=== PATIENT | female | born 1955 | race Caucasian/White ===

== ENCOUNTER 2017-03-03 11:40 | Emergency (ER) | payer MEDICARE, OTHER ==
[2017-03-03 12:34] VITALS: BP 114/86
--- NOTE | 2017-03-03 12:55 | UC ---
Lower Extremity/Ankle HPI - HPI Summary HPI Summary: BILATERAL LEG/ FEET SWELLING HAS BEEN TRAVELING A LOT AND HAS BEEN ON HER FEET FOR LONG HRS. NO CALF PAIN , NO CHEST PAIN , COUGH OR SOB - History of Current Complaint Chief Complaint: UCLowerExtremity Stated Complaint: LEFT FOOT SWELLING Time Seen by Provider: 03/03/17 12:26 Hx Obtained From: Patient Hx Last Menstrual Period: n/a Onset/Duration: Gradual Onset, Lasting Days - 5, Still Present Severity Initially: Moderate Severity Currently: Moderate Aggravating Factor(s): Standing, Ambulation Alleviating Factor(s): Rest, Elevation Able to Bear Weight: Yes - Allergies/Home Medications Allergies/Adverse Reactions: Allergies Allergy/AdvReac Type Severity Reaction Status Date / Time Latex Allergy Blisters Verified 03/03/17 12:34 Penicillins Allergy Hives Verified 03/03/17 12:37 Sulfa Antibiotics Allergy Hives Verified 03/03/17 12:37 all cillins Allergy Hives Uncoded 03/03/17 12:37 red dye 40 Allergy Hives Uncoded 03/03/17 12:37 Home Medications: Home Medications Levothyroxine TAB* [Synthroid TAB*] 75 mcg PO DAILY 03/03/17 [History Confirmed 03/03/17] PMH/Surg Hx/FS Hx/Imm Hx Endocrine History: Thyroid Disease - Surgical History Surgical History: Yes Surgery Procedure, Year, and Place: 1993 exploratory abdominal, appy, tubal ligation; dental implants and crowns; cataract lens replacement - Family History Known Family History: Negative: Diabetes - Social History Alcohol Use: None Substance Use Type: None Smoking Status (MU): Never Smoked Tobacco Review of Systems Constitutional: Negative Skin: Negative Eyes: Negative ENT: Negative Respiratory: Negative Cardiovascular: Negative Musculoskeletal: Edema All Other Systems Reviewed And Are Negative: Yes Physical Exam Triage Information Reviewed: Yes Appearance: Well-Appearing, No Pain Distress, Obese Vital Signs: Initial Vital Signs Temp 98.4 F 03/03/17 12:01 Pulse 84 03/03/17 12:01 Resp 18 03/03/17 12:01 BP 114/86 03/03/17 12:01 Pulse Ox 94 03/03/17 12:01 Vital Signs Reviewed: Yes Eyes: Positive: Conjunctiva Clear ENT: Positive: Normal ENT inspection, Hearing grossly normal, Pharynx normal Neck: Positive: Supple, Nontender, No Lymphadenopathy Respiratory: Positive: Chest non-tender, Lungs clear, Normal breath sounds, No respiratory distress Cardiovascular: Positive: RRR, No Murmur, Pulses Normal Abdominal Exam: Normal Abdomen Description: Positive: Nontender, Soft. Negative: CVA Tenderness (R), CVA Tenderness (L), Distended, Guarding Bowel Sounds: Positive: Present Musculoskeletal: Positive: Edema @, Other: - LOWER EXT: + +2 EDEMA, NO CALF TENDERNESS, NO ERYTHEM, GOOD DISTAL PULSES Lower Extremity Course/Dx - Differential Dx/Diagnosis Provider Diagnoses: LOWER EXT EDEMA Discharge - Discharge Plan Condition: Stable Disposition: HOME Patient Education Materials: Leg Edema (ED) Forms: *Gen. Provider Communication Referrals: Reyes Beltran MD [Primary Care Provider] - 5 Days
== END 2017-03-03 13:08 | disposition home or self-care (01) ==
LOC: UCCORT 11:40
DX: R60.0 Localized edema (principal)
CPT/HCPCS: 93005; 99201; G0463